=== PATIENT | female | born 1990 | race Caucasian/White ===

== ENCOUNTER 2021-03-06 12:20 | Inpatient (IN) | payer BC ==
[2021-03-06] MEDS ORDERED: Lidocaine 1% (PF) 30 ML VIAL SC PRN (13:18)
[2021-03-06] MEDS ORDERED: Ondansetron PF 4 MG/2 ML Vial IVP PRN (13:18)
[2021-03-06] MEDS ORDERED: Promethazine HCl 25 MG/ML VIAL IM PRN (13:18)
[2021-03-06] MEDS ORDERED: Butorphanol Tartrate 1 MG/ML VIAL SLOW IVP PRN (13:18)
[2021-03-06] MEDS ORDERED: hydrALAZINE 20 MG/ML VIAL SLOW IVP PRN (13:18)
[2021-03-06] MEDS ORDERED: HYDROcodone/Acetaminophen 5/325 mg Tablet PO PRN ×2 (13:25)
[2021-03-06] MEDS ORDERED: Ibuprofen 800 MG TAB PO PRN (13:25)
[2021-03-06] MEDS ORDERED: Misoprostol 200 MCG TAB PR PRN (13:25)
[2021-03-06] MEDS ORDERED: NS w/ Oxytocin 30 units 500 ML IV SCH (13:30)
[2021-03-06 14:08] VITALS: BMI 35.2
[2021-03-06 14:50] LABS: Hemoglobin 12.8 g/dL (12.0-15.5); Mean Corpuscular HGB CONC 34.8 g/dL (32.0-36.0); Mean Corpuscular Hemoglobin 31.7 pg (27.0-33.0); Mean Corpuscular Volume 91.1 fl (81.6-98.3); Mean Platelet Volume 11.2 fl (7.4-10.4); Platelet Count 212 10x3/uL (150-450); RBC Distribution Width 13.2 % (11.5-14.5); Red Blood Cell (RBC) Count 4.04 10x6/uL (3.90-5.03); White Blood Cell (WBC) Count 11.8 10x3/uL (3.5-10.5)
[2021-03-06] MEDS ORDERED: Misoprostol 100 MCG TAB ONE ×2 (15:04→15:40)
[2021-03-06 15:21] LABS: Hep B Surf Ag Non-Reactive S/CO (NonReactive); Syphilis Antibody Nonreactive (Nonreactive); Syphilis Antibody Index 0.05 S/CO (<1.00 Non-Reactive)
[2021-03-06] MEDS: Misoprostol 100 MCG TAB VAG SCH ×3 (15:43→21:57)
[2021-03-06 15:44] LABS: HBSAg Index 0.19 S/CO (0-0.99)
[2021-03-06 18:33] LABS: Albumin 3.1 g/dL (3.5-5.0); Anion Gap 16 mmol/L (10-20); BUN (Urea Nitrogen) 10 mg/dL (7.0-18.7); Bilirubin, Total 0.2 mg/dL (0.2-1.2); Calc. Creatinine Clearance 164 mL/min (70-130); Calcium 9.3 mg/dL (7.8-10.44); Carbon Dioxide 20 mmol/L (22-29); Chloride 107 mmol/L (98-107); Glucose 127 mg/dL (70-105); Potassium 3.6 mmol/L (3.5-5.1); Protein, Total 6.1 g/dL (6.0-8.3); Sodium 139 mmol/L (136-145)
[2021-03-06 18:34] LABS: ALT (SGPT) 17 U/L (8-55); AST (SGOT) 19 U/L (5-34); Alkaline Phosphatase 190 U/L (40-110)
[2021-03-06 18:52] LABS: Creatinine, Urine 42.95 mg/dL (47-110); Protein, Urine Random Quant Less than 10 mg/dL (1-14)
[2021-03-06] MEDS ORDERED: Magnesium Sulfate 20 gm/500 ml 20 GM/500 ML BAG ONE (19:16)
[2021-03-06] MEDS ORDERED: Labetalol HCl 100 MG/20 ML VIAL ONE (19:46)
[2021-03-06] MEDS: Lactated Ringer's 1,000 ML IV SCH (20:02)
[2021-03-06] MEDS ORDERED: Calcium Gluc 4.6 MEQ/10 ML (100 MG/ML) SLOW IVP PRN (21:06)
[2021-03-06] MEDS ORDERED: Magnesium Sulfate 20 GM/WATER 500 ML BAG IVPB SCH (21:15)
[2021-03-07] MEDS: Magnesium Sulfate 20 gm/500 ml 20 GM/500 ML BAG IVPB SCH ×2 (04:42→14:19)
[2021-03-07] MEDS: Misoprostol 100 MCG TAB VAG SCH (04:42)
[2021-03-07] MEDS: Acetaminophen 500 MG TAB PO PRN ×2 (07:58→17:47)
[2021-03-07 09:05] LABS: SARS-CoV-2 NAA Rapid Test Not Detected (NotDetected)
[2021-03-07] MEDS: Labetalol HCl 100 MG/20 ML VIAL SLOW IVP SCH (17:01)
[2021-03-08] MEDS: Magnesium Sulfate 20 gm/500 ml 20 GM/500 ML BAG IVPB SCH (00:28)
[2021-03-08] MEDS: Labetalol HCl 100 MG/20 ML VIAL SLOW IVP SCH (06:40)
[2021-03-08] MEDS ORDERED: Ondansetron PF 4 MG/2 ML Vial ONE (07:00)
[2021-03-08] MEDS ORDERED: Phenylephrine 10 MG/ML VIAL ONE ×2 (07:00→07:05)
[2021-03-08] MEDS ORDERED: Oxytocin 10 UNITS/ML VIAL ONE (07:00)
[2021-03-08] MEDS ORDERED: Dexamethasone 4 mg/ml Vial ONE (07:00)
[2021-03-08] MEDS ORDERED: Bicitra 30 ML UDCUP PO PRN (07:03)
[2021-03-08] MEDS ORDERED: Famotidine/PF 20 mg/2ml Vial SLOW IVP PRN (07:03)
[2021-03-08] MEDS ORDERED: ceFAZolin 2 GM/Dextrose 50 ML IVPB ONE (07:03)
[2021-03-08] MEDS ORDERED: Azithromycin 500 MG VIAL ONE (07:04)
[2021-03-08] MEDS ORDERED: ceFAZolin 2 GM/Dextrose 50 ML 2 GM in Premix Bag 1 BAG IVPB SCH (07:15)
[2021-03-08] MEDS ORDERED: Azithromycin 500 MG in Sodium Chloride 0.9% 250 ML 250 ML IVPB SCH (07:15)
[2021-03-08] MEDS ORDERED: Misoprostol 200 MCG TAB ONE (07:24)
[2021-03-08] MEDS ORDERED: Tranexamic Acid 1,000 MG/10 ML VIAL ONE (07:24)
[2021-03-08] MEDS ORDERED: Carboprost 250 MCG/ML AMP ONE (07:25)
[2021-03-08] MEDS ORDERED: Morphine PF 10 MG/10 ML VIAL ONE (07:42)
[2021-03-08] MEDS ORDERED: Metoclopramide HCl 10 MG/2 ML VIAL ONE (08:06)
[2021-03-08] MEDS ORDERED: diphenhydrAMINE 50 MG/ML VIAL ONE (08:14)
[2021-03-08] MEDS ORDERED: Ketorolac Tromethamine 30 MG/ML VIAL ONE (08:30)
[2021-03-08] MEDS ORDERED: Ondansetron PF 4 MG/2 ML Vial IVP PRN (08:53)
[2021-03-08] MEDS ORDERED: Hydrocerin (Eucerin) Cream 120 gm Jar TOP PRN (08:53)
[2021-03-08] MEDS ORDERED: Ketorolac Tromethamine 30 MG/ML VIAL IVP PRN (08:53)
[2021-03-08] MEDS ORDERED: Fentanyl 100 MCG/2 ML VIAL SLOW IVP PRN (08:53)
[2021-03-08] MEDS ORDERED: Promethazine HCl 25 MG SUPP PR PRN (08:53)
[2021-03-08] MEDS ORDERED: diphenhydrAMINE 50 MG/ML VIAL IVP PRN (08:53)
[2021-03-08] MEDS ORDERED: Naloxone HCl 0.4 mg/ml Vial IVP PRN ×2 (08:53)
[2021-03-08] MEDS ORDERED: Promethazine HCl 25 MG/ML VIAL IM PRN (08:53)
[2021-03-08] MEDS ORDERED: Naloxone HCl 0.4 mg/ml Vial IV PRN (08:53)
[2021-03-08] MEDS ORDERED: Meperidine HCl/PF 25 MG/ML VIAL SLOW IVP PRN (08:53)
[2021-03-08] MEDS ORDERED: Ondansetron HCl/PF 4 MG/2 ML Vial IVP PRN (08:53)
[2021-03-08] MEDS ORDERED: Communication Order-Pharmacy FS SCH (09:00)
[2021-03-08] MEDS ORDERED: Ketorolac Tromethamine 30 MG/ML VIAL IVP SCH (09:00)
[2021-03-08] MEDS ORDERED: hydrALAZINE 20 MG/ML VIAL SLOW IVP PRN (11:45)
[2021-03-08] MEDS ORDERED: NS w/ Oxytocin 30 units 500 ML IV SCH (11:45)
[2021-03-08] MEDS ORDERED: Misoprostol 200 MCG TAB PR PRN (11:45)
[2021-03-08] MEDS ORDERED: Calcium Gluconate 4.6 MEQ in Sodium Chloride 0.9% 100 ML IVPB PRN (11:45)
[2021-03-08] MEDS ORDERED: Magnesium Sulfate 20 gm/500 ml 20 GM/500 ML BAG IVPB SCH (11:45)
[2021-03-08] MEDS ORDERED: HYDROcodone/Acetaminophen 5/325 mg Tablet PO PRN (11:45)
[2021-03-08] MEDS ORDERED: Boostrix 0.5 ML (Tdap) VIAL IM ONE (11:45)
[2021-03-08 13:17] LABS: Magnesium 5.6 mg/dL (1.6-2.6)
[2021-03-09 05:56] LABS: Hemoglobin 9.9 g/dL (12.0-15.5); Mean Corpuscular HGB CONC 32.9 g/dL (32.0-36.0); Mean Corpuscular Hemoglobin 30.9 pg (27.0-33.0); Mean Corpuscular Volume 94.1 fl (81.6-98.3); Mean Platelet Volume 11.1 fl (7.4-10.4); Platelet Count 180 10x3/uL (150-450); RBC Distribution Width 13.7 % (11.5-14.5); White Blood Cell (WBC) Count 12.8 10x3/uL (3.5-10.5)
[2021-03-09] MEDS ORDERED: Ibuprofen 800 MG TAB PO SCH (09:00)
[2021-03-09] MEDS: Docusate 100 MG CAP PO SCH ×2 (11:30→20:30)
[2021-03-09] MEDS: Ferrous Sulfate 325 MG TAB PO SCH ×2 (11:30→20:30)
[2021-03-09] MEDS: Misoprostol 100 MCG TAB VAG SCH ×3 (11:33→11:35)
[2021-03-09] MEDS: Lactated Ringer's 1,000 ML IV SCH ×2 (11:33→13:48)
[2021-03-09] MEDS: HYDROcodone/Acetaminophen 5/325 mg Tablet PO PRN ×2 (15:48→20:31)
[2021-03-09] MEDS: Simethicone Chewable 80 MG TAB PO PRN (15:48)
[2021-03-09] MEDS ORDERED: NIFEdipine XL 30 MG TAB PO SCH (16:45)
[2021-03-09] MEDS ORDERED: Labetalol HCl 100 MG/20 ML VIAL SLOW IVP SCH (16:45)
[2021-03-09] MEDS: Ibuprofen 800 MG TAB PO SCH (20:30)
[2021-03-10] MEDS: Acetaminophen 500 MG TAB PO PRN ×3 (00:35→12:09)
[2021-03-10] MEDS: Simethicone Chewable 80 MG TAB PO PRN (00:36)
[2021-03-10] MEDS: Ibuprofen 800 MG TAB PO SCH ×2 (04:28→14:13)
[2021-03-10 07:35] LABS: Bilirubin Neg (Negative); Blood, Urine 250 (Negative); Clarity Slightly Cloudy (Clear); Glucose, Urine (Dipstick) Normal (Negative); Ketone, Urine Negative (Negative); Leukocyte 25 (Negative); Nitrite Negative (Negative); Protein, Urine (Dipstick) 30 mg/dl (Neg-Trace); Urobilinogen Normal mg/dL (Less than 2)
[2021-03-10] MEDS: Docusate 100 MG CAP PO SCH (08:03)
[2021-03-10] MEDS: Ferrous Sulfate 325 MG TAB PO SCH (08:03)
[2021-03-10 08:15] LABS: RBC/HPF Greater than 50 HPF (0-3)
[2021-03-10 08:16] LABS: WBC/HPF 0-3 HPF (0-3)
[2021-03-10 08:17] LABS: Bacteria/HPF Rare-Few HPF (None Seen)
[2021-03-10] MEDS ORDERED: NIFEdipine XL 30 MG TAB PO SCH (09:00)
[2021-03-10 12:17] VITALS: BP 133/79; TEMP 98
== END 2021-03-10 16:00 | disposition home or self-care (01) | DRG 788 ==
LOC: CSHLD/OP 12:20 → CSHLD 15:05 → CSHPP 03-09 11:00
PROVIDERS: ADMIT Obstetrics & Gynecology; ATTEND Obstetrics & Gynecology
PROC: 10907ZC Drainage of Amniotic Fluid, Therapeutic from Products of Conception, Via Natural or Artificial Opening (ICD-10-PCS; principal; 2021-03-08)
PROC: 10D00Z1 Extraction of Products of Conception, Low, Open Approach (ICD-10-PCS; 2021-03-08)
PROC: 3E033VJ Introduction of Other Hormone into Peripheral Vein, Percutaneous Approach (ICD-10-PCS; 2021-03-08)
DX: O13.4 Gestational [pregnancy-induced] hypertension without significant proteinuria, complicating childbirth (principal); Z37.0 Single live birth; Z20.822 Contact with and (suspected) exposure to COVID-19; Z3A.41 41 weeks gestation of pregnancy; O62.2 Other uterine inertia
CPT/HCPCS: 36415; 80053; 81001; 82570; 83735; 84156; 85027; 86780; 86850; 86900; 86901; 87340; J0360; J0456; J0690; J1100; J1200; J1885; J2274; J2370; J2405; J2590; J2765; J3475; J7120; U0002

== ENCOUNTER 2023-04-30 17:13 | Day surgery (SDC) | payer SELFPAY ==
[2023-04-30] MEDS ORDERED: hydrALAZINE 20 MG/ML VIAL SLOW IVP PRN (17:52)
[2023-04-30 18:35] LABS: Bilirubin Neg (Negative); Blood, Urine Negative (Negative); Clarity Clear (Clear); Glucose, Urine (Dipstick) Normal (Negative); Ketone, Urine Negative (Negative); Leukocyte 100 (Negative); Nitrite Negative (Negative); Protein, Urine (Dipstick) Negative (Neg-Trace); Urobilinogen Normal mg/dL (Less than 2)
[2023-04-30 18:49] LABS: Bacteria/HPF 4+ HPF (None Seen); CAUTI Indications for Culture Dysuria,urgency,freq; Mucous/LPF 2+ LPF (<2+); RBC/HPF 0-3 HPF (0-3); WBC/HPF 0-3 HPF (0-3)
[2023-04-30 18:50] LABS: Fetal Membranes Rupture No Membranes Rupture (No Rupture)
[2023-04-30 18:50] LABS: Urine Culture Reflex No No
== END 2023-04-30 20:15 | disposition home or self-care (01) ==
LOC: CSHLD/OP 17:13
PROVIDERS: ATTEND Obstetrics & Gynecology
DX: O23.593 Infection of other part of genital tract in pregnancy, third trimester (principal); B96.89 Other specified bacterial agents as the cause of diseases classified elsewhere; O99.891 Other specified diseases and conditions complicating pregnancy; N89.8 Other specified noninflammatory disorders of vagina; O24.410 Gestational diabetes mellitus in pregnancy, diet controlled; Z03.71 Encounter for suspected problem with amniotic cavity and membrane ruled out; Z3A.31 31 weeks gestation of pregnancy
CPT/HCPCS: 81001; 84112; 87086; 87480; 87510; 87660